=== PATIENT | male | born 1955 | race Caucasian/White ===

== ENCOUNTER 2023-01-31 18:13 | Emergency (ER) | payer OTHER, SELFPAY ==
--- NOTE | 2023-01-31 18:16 | XRR_ITS ---
PROCEDURE INFORMATION: Exam: XR Right Shoulder Exam date and time: 01/31/2023 6:19 PM Age: 67 years old Clinical indication: Injury or trauma; Fall TECHNIQUE: Imaging protocol: Radiologic exam of the right shoulder. Views: 2 or more views. COMPARISON: No relevant prior studies available. FINDINGS: Bones/joints: Humeral neck impacted fracture with some extension to the humeral head involving the greater tuberosity. Soft tissues: Normal. XR/XR shoulder RT min 2V* [id number] IMPRESSION: Humeral neck impacted fracture with some extension to the humeral head involving the greater tuberosity.
--- NOTE | 2023-01-31 18:16 | CTR_ITS ---
PROCEDURE INFORMATION: Exam: CT Head Without Contrast Exam date and time: 01/31/2023 6:36 PM Age: 67 years old Clinical indication: Injury or trauma; Fall; Blunt trauma (contusions or hematomas) TECHNIQUE: Imaging protocol: Computed tomography of the head without contrast. Radiation optimization: All CT scans at this facility use at least one of these dose optimization techniques: automated exposure control; mA and/or kV adjustment per patient size (includes targeted exams where dose is matched to clinical indication); or iterative reconstruction. REPORTING DATA: Count of CT and Cardiac NM exams in prior 12 months: This patient has received 0 known CTs and 0 known cardiac nuclear medicine studies in the 12 months prior to the current study. COMPARISON: No relevant prior studies available. RADIATION DOSE METRICS: Total DLP (mGy-cm): 1068 FINDINGS: Brain: Moderate diffuse white matter disease likely reflecting chronic microvascular ischemic changes. Cerebral ventricles: No ventriculomegaly. Paranasal sinuses: Visualized sinuses are unremarkable. No fluid levels. Mastoid air cells: Visualized mastoid air cells are well aerated. Bones/joints: Unremarkable. No acute fracture. Soft tissues: Unremarkable. CT/CT head wo con* [id number] IMPRESSION: Negative for intracranial hemorrhage or mass effect.
[2023-01-31 18:17] VITALS: BMI 23.7
[2023-01-31 18:21] VITALS: PULSE 80; RESP 16; TEMP 36.6; O2SAT 98
[2023-01-31 18:25] VITALS: BP 138/83
--- NOTE | 2023-01-31 18:25 | W.ED.FALL ---
HPI - Fall General: Chief Complaint: Fall Stated Complaint: RT Shoulder pain / Fall Time Seen by Provider: 01/31/23 18:14 Source: patient and EMS Mode of arrival: EMS Limitations: no limitations History of Present Illness: 67-year-old male who had been drinking today smokes marijuana states that he did felt and took off table states hit his head and his right shoulder he did have a loss conscious denies any headache currently but does have right shoulder pain he is in a sling denies any neck pain. Denies any lower extremity pain. Associated symptoms-after fall: Reports headache(s); Denies abdominal pain, chest pain or neck pain Review of Systems Const: Denies: fever(s) or chills Eyes: Denies: blurry vision or eye discomfort ENMT: Denies: throat pain or dental pain Card: Denies: chest pain Resp: Denies: dyspnea GI: Denies: abdominal pain, nausea or vomiting Musc: Reports: extremity pain; Denies: neck pain or back pain Skin/Breast: Denies: rash Neuro: Reports: headache(s) Physical Exam Const: COMMON NORMALS: no acute distress, patient oriented x3 and healthy appearing HENMT: COMMON NORMALS: normocephalic HEAD & SCALP: normocephalic OTHER: Abrasion noted to right side of head Eye: COMMON NORMALS: Equal, round and reactive pupils present and EOMs intact bilaterally PUPIL: Yes Equal, round and reactive pupils present Neck/C-Spine: COMMON NORMALS: full ROM and supple Chest: COMMONS NORMALS: normal inspection of the chest and normal palpation of entire chest wall Resp: COMMON NORMALS: normal respiratory effort, No retractions, No use of accessory muscles and clear to auscultation bilaterally AUSCULTATION: clear to auscultation bilaterally Cardio: COMMON NORMALS: regular rate, regular rhythm and No murmurs present (Cardio) RATE: regular rate RHYTHM: regular rhythm GI: COMMON NORMALS: Normal to inspection, nondistended, normoactive bowel sounds present, Soft to palpation, non-tender and no masses PALPATION: Yes Soft to palpation Extremity: NARRATIVE EXTREMITY EXAM: Right arm is in a sling tenderness noted to the shoulder Neuro: COMMON NORMALS: patient oriented x3, moves all extremities and no focal motor deficits Psych: COMMON NORMALS: mental status grossly normal, Normal thought process present and cooperative THOUGHT PROCESS: Normal thought process present Skin: COMMON NORMALS: no rashes or lesions noted and no wounds GENERAL SKIN EXAM: no rashes or lesions noted Course Vital Signs: Vital signs: Vital Signs Temperature 97.8 F 01/31/23 18:21 Pulse Rate 80 01/31/23 18:21 Respiratory Rate 16 01/31/23 18:21 Blood Pressure 138/83 01/31/23 18:25 Pulse Oximetry 98 01/31/23 18:21 Oxygen Delivery Me thod Room Air 01/31/23 18:21 MDM - Fall Medical Decision Making Patient presents here with a humerus fracture after a fall. Head CT here is normal he has no signs of laceration just an abrasion no neck pain he is stable for discharge. Lab Data Radiology Impressions Head CT 01/31/23 18:16 IMPRESSION: Negative for intracranial hemorrhage or mass effect. Shoulder X-Ray 01/31/23 18:16 IMPRESSION: Humeral neck impacted fracture with some extension to the humeral head involving the greater tuberosity. Discharge Plan Discharge Patient Disposition: Home Clinical Impression: Head injury, Fall Fracture of humerus Qualifiers: Encounter type: initial encounter Humerus Location: proximal Fracture type: closed Laterality: right Condition: Stable Discharge Orders: Discharge ED (Routine); Ordered 01/31/23 Ordered By: Shara Baez Referrals: Ken Desir DO [Physician] - 1-3 days Discharge Diet: Advance as tolerated Discharge Activity: Resume usual activity Patient Instructions: Proximal Humerus Fracture (ED) Coding Level of Care Code ED Manufacturing Maintenance Technician for Stanton Zheng
[2023-01-31 19:25] VITALS: BP 111/93
--- NOTE | 2023-02-01 08:22 | PC.SOCIAL ---
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 tried calling his sister listed under contacts - that number is not accepting msgs - schedule w/dr ley next week Original Note: Ortho Referral Referral to ortho at this time. Clinic will contact patient with appt date/time.
== END 2023-01-31 19:28 | disposition home or self-care (01) ==
PROVIDERS: Emergency Provider Emergency Medicine
DX: S42.214A Unspecified nondisplaced fracture of surgical neck of right humerus, initial encounter for closed fracture (principal); S00.91XA Abrasion of unspecified part of head, initial encounter; W19.XXXA Unspecified fall, initial encounter
CPT/HCPCS: 70450; 73030; 99284